=== PATIENT | female | born 1970 | race African-American/Black ===

== ENCOUNTER 2017-09-23 22:37 | Emergency (ER) | payer MEDICAID ==
[~2017-09-23] VITALS: Ht 167.6 cm; Wt 66.0 kg
[2017-09-24] MEDS ORDERED: LIDOCAINE 5% PATCH TOP STA (00:17)
[2017-09-24 03:19] VITALS: BP 154/88
== END 2017-09-24 03:22 | disposition home or self-care (01) ==
LOC: ER 22:37
DX: S20.219A Contusion of unspecified front wall of thorax, initial encounter (principal); V49.9XXA Car occupant (driver) (passenger) injured in unspecified traffic accident, initial encounter; Y93.89 Activity, other specified; Y99.8 Other external cause status; Y92.410 Unspecified street and highway as the place of occurrence of the external cause
CPT/HCPCS: 71045; 81025; 93005; 99284; Z7610